=== PATIENT | male | born 1940 | race Caucasian/White ===

== ENCOUNTER → 2020-05-08 | Outpatient (CLI) | payer OTHER ==
[~2020-05-08] MED LIST: MEDROL4 MG PO
== END ==
LOC: RAD 12:52
DX: M25.569 Pain in unspecified knee (principal); M81.0 Age-related osteoporosis without current pathological fracture; M17.0 Bilateral primary osteoarthritis of knee
CPT/HCPCS: 73565

== ENCOUNTER → 2020-05-29 | Outpatient (CLI) | payer OTHER | LOC: EXRD 12:48 | DX: M81.0 Age-related osteoporosis without current pathological fracture (principal) | CPT/HCPCS: 77080 ==